=== PATIENT | male | born 1980 | race Caucasian/White ===

== ENCOUNTER 2016-05-25 12:49 | Emergency (ER) | payer SELFPAY ==
[~2016-05-25] VITALS: Ht 172.7 cm; Wt 66.0 kg
[~2016-05-25 12:49] MED LIST: HYDR-3534 PO; ZOFR4TAB3 SL
[2016-05-25 12:50] VITALS: BP 152/90; PULSE 82; RESP 20; TEMP 98.1; O2SAT 100
--- NOTE | 2016-05-25 14:11 | PD ---
Physical Exam Date Seen by Provider: May 25, 2016 Time Seen by Provider: 14:08 Narrative 35 YOWM C/O RECURRENT L INGUINAL HERNIA. POST REDUCIBLE. . POS NAUSEA NO VOMITING. VVS. AWAITING BED PLACEMENT Data Data Last Documented VS Vital Signs Date Time Temp Pulse Resp B/P Pulse Ox O2 Delivery O2 Flow Rate FiO2 05/25/16 12:50 98.1 82 20 152/90 100 Room Air [facility] Medical Record Reviewed: Yes Supervised Visit with BELKIS: Yes Modesto Olivares May 25, 2016 14:11
== END 2016-05-25 17:25 | disposition left against medical advice (07) ==
LOC: NED 12:49
DX: K46.9 Unspecified abdominal hernia without obstruction or gangrene (principal); Z53.29 Procedure and treatment not carried out because of patient's decision for other reasons
CPT/HCPCS: 99282

== ENCOUNTER 2016-05-27 08:59 | Emergency (ER) | payer SELFPAY ==
[~2016-05-27] VITALS: Ht 172.7 cm; Wt 68.0 kg
[2016-05-27 09:01] VITALS: BP 156/107; PULSE 100; RESP 20; TEMP 98; O2SAT 99
[2016-05-27 09:10] VITALS: BP 141/97; PULSE 95; RESP 20; TEMP 98.7; O2SAT 100
[2016-05-27] MEDS ORDERED: ULTR50TA5 PO (09:21)
[2016-05-27] MEDS ORDERED: MOBI15TA PO (09:21)
--- NOTE | 2016-05-27 09:22 | PD ---
HPI Chief Complaint: Lump, Cyst, Hernia Time Seen by Provider: 09:09 Travel History International Travel<30 days: No Contact w/Intl Traveler<30days: No Traveled to known affect area: No History of Present Illness HPI 35-year-old male complains of painful left inguinal hernia. Patient states that he has left inguinal hernia for the past several years. Patient states that he has increasing pain and swelling of the hernia for the past 3 days. Patient denies any fever chills. Patient denies any nausea vomiting. Patient states that the pain is sharp pain localized to left groin area. Patient denies any pain radiation. On a scale of 1-10 the pain is an 8. PFSH Past Medical History Diminished Hearing: No Inguinal Hernia: Yes (LEFT) Past Surgical History Tonsillectomy: Yes Social History Alcohol Use: Yes (rarely) Tobacco Use: Yes (6-10 cigs per day. ) Substance Use: No Allergies-Medications (Allergen,Severity, Reaction): Coded Allergies: No Known Allergies (Unverified , 05/25/16) Reported Meds & Prescriptions Reported Meds & Active Scripts Active Zofran Odt (Ondansetron Odt) 4 Mg Tab 4 Mg SL Q6HR PRN Lortab (Hydrocodone-Acetaminophen) 7.5-325 Mg Tab 1 Tab PO Q6H PRN Review of Systems General / Constitutional: No: Fever Eyes: No: Visual changes HENT: No: Headaches Cardiovascular: No: Chest Pain or Discomfort Respiratory: No: Shortness of Breath Gastrointestinal: No: Abdominal Pain Genitourinary: No: Dysuria Musculoskeletal: No: Pain Skin: No Rash Neurologic: No: Weakness Psychiatric: No: Depression Endocrine: No: Polydipsia Hematologic/Lymphatic: No: Easy Bruising Physical Exam Narrative GENERAL: Well-nourished, well-developed patient. SKIN: Focused skin assessment warm/dry. HEAD: Normocephalic. EYES: No scleral icterus. No injection or drainage. NECK: Supple, trachea midline. No JVD or lymphadenopathy. CARDIOVASCULAR: Regular rate and rhythm without murmurs, gallops, or rubs. RESPIRATORY: Breath sounds equal bilaterally. No accessory muscle use. GASTROINTESTINAL: Abdomen soft, non-tender, nondistended. MUSCULOSKELETAL: No cyanosis, or edema. BACK: Nontender without obvious deformity. No CVA tenderness. Patient has a large direct left inguinal hernia. Data Data Last Documented VS Vital Signs Date Time Temp Pulse Resp B/P Pulse Ox O2 Delivery O2 Flow Rate FiO2 05/27/16 09:01 98.0 100 20 156/107 99 Room Air MDM Medical Decision Making Medical Screen Exam Complete: Yes Emergency Medical Condition: Yes Differential Diagnosis Differential diagnosis including reducible in the hernia, strangulated inguinal hernia, incarcerated inguinal hernia Narrative Course 35-year-old male with large painful direct left inguinal hernia. Patient was put in the Trendelenburg position. Gentle pressure applied to the left inguinal area. The hernia was reduced without complication. Diagnosis Primary Impression: Reducible left inguinal hernia Patient Instructions: General Instructions Additional Instructions: Take medications as needed for pain. Follow-up with surgeon. Return immediately if unable to reduce the hernia, intractable pain, fever, persistent vomiting. Med/Other Pt SpecificInfo: Prescription(s) given Scripts Tramadol (Ultram)50 Mg Tab50 Mg PO Q6H PRN (PAIN) #20 TAB Prov:Ramana Wade MD 05/27/16 Meloxicam (Mobic)15 Mg Tab15 Mg PO DAILY #20 TAB Prov:Ramana Wade MD 05/27/16 Disposition: 01 DISCHARGE HOME Condition: Stable Ramana Wade MD May 27, 2016 09:22
[2016-05-27] MEDS ORDERED: IBUPROFEN 600 MG TAB PO ONE (09:45)
[2016-05-27] MEDS ORDERED: ONDANSETRON ODT 4 MG TAB PO ONE (09:45)
== END 2016-05-27 09:45 | disposition home or self-care (01) ==
LOC: NEPD 08:59
DX: K40.90 Unilateral inguinal hernia, without obstruction or gangrene, not specified as recurrent (principal)
CPT/HCPCS: 99283